=== PATIENT | female | born 1965 | race Caucasian/White ===

== ENCOUNTER 2021-07-23 05:27 | Observation (INO) ==
[2021-07-23 06:20] LABS: Basophils # 0.1 K/mcL (0.0-0.2); Basophils % 0.6 %; Eosinophils # 0.2 K/mcL (0.0-0.6); Eosinophils % 1.7 %; Hematocrit 44.6 % (35.3-44.9); Hemoglobin 14.5 g/dL (11.5-15.4); Immature Granulocytes % 0.6 % (0-4); Lymphocytes # 1.7 K/mcL (0.6-4.6); Lymphocytes % 16.1 %; Mean Corpuscular HGB Conc 32.5 g/dL (31.6-35.5); Mean Corpuscular Hemoglobin 29.3 pg (28.0-33.3); Mean Corpuscular Volume 90.1 fL (83.0-100.0); Mean Platelet Volume 10.9 fL (9.4-12.4); Monocytes # 0.7 K/mcL (0.0-1.3); Monocytes % 6.4 %; Platelet Count 270 K/mcL (140-400); Red Blood Count 4.95 M/mcL (3.82-4.97); Red Cell Distribution Width 13.9 % (11.5-14.5); Segmented Neutrophils % 74.6 %; White Blood Count 10.7 K/mcL (4.3-11.1)
[2021-07-23 06:28] LABS: INR 1.1; Prothrombin Time 12.1 Seconds (9.4-12.1)
[2021-07-23 06:30] LABS: Activated Partial Thrombo Time 34.1 Seconds (26.0-36.0)
[2021-07-23] MEDS ORDERED: Isovue-370 500 ML BOTTLE IVP ONE (06:38)
[2021-07-23 06:53] LABS: Alanine Aminotransferase 22 Units/L (7-52); Albumin 4.1 g/dL (3.5-5.7); Albumin/Globulin Ratio 1.5 (1.1-2.2); Alkaline Phosphatase 94 Units/L (34-104); Aspartate Amino Transferase 17 Units/L (13-39); BUN/Creatinine Ratio 24 (6-26); Bilirubin,Direct 0.1 mg/dL (0.0-0.2); Bilirubin,Indirect 0.5 mg/dL (0.0-1.0); Bilirubin,Total 0.6 mg/dL (0.3-1.0); Blood Urea Nitrogen 19 mg/dL (6-20); Calcium 9.1 mg/dL (8.6-10.3); Carbon Dioxide 26 mEq/L (23-29); Chloride 106 mEq/L (98-107); Globulin 2.7 g/dL (2.4-3.5); Glucose 133 mg/dL (70-105); Lipase 39 Units/L (11-82); Osmolality,Calculated 294 (280-300); Potassium 3.5 mEq/L (3.5-5.1); Sodium 140 mEq/L (136-145); Total Protein 6.8 g/dL (6.4-8.9); Troponin I 0.14 ng/mL (< 0.04); eGFR For African Americans > 60 (> 60); eGFR For Non-African Americans > 60 (> 60)
[2021-07-23] MEDS ORDERED: *HR* LORazepam 2 MG/ML VIAL IVP ONE (07:37)
[2021-07-23] MEDS ORDERED: *HR* Heparin 5,000 UNIT/ML VIAL IVP ONE (07:44)
[2021-07-23] MEDS ORDERED: *HR* Heparin 5,000 UNIT/ML VIAL IVP PRN ×2 (07:44)
[2021-07-23] MEDS ORDERED: Heparin 25,000UNIT/250ML 1/2NS 25,000 UNIT/250 ML IV.SOLN IVC SCH (07:45)
[2021-07-23] MEDS ORDERED: Melatonin 3 MG TABLET PO PRN (08:01)
[2021-07-23] MEDS ORDERED: Ondansetron ODT 4 MG TAB.RAPDIS SL PRN (08:01)
[2021-07-23] MEDS ORDERED: Naloxone 0.4 MG/ML INJ IVP PRN (08:01)
[2021-07-23] MEDS ORDERED: Perflutren Lipid Microsphere 1.3 ML in 0.9 % Sodium Chloride 8.7 ML IVP PRN (08:05)
[2021-07-23 11:53] LABS: Chol/HDL Ratio 6.4 (0-4.9)
[2021-07-23 12:08] LABS: Troponin I 1.93 ng/mL (< 0.04)
[2021-07-23] MEDS ORDERED: ISOVUE-370 200 ML INFUS..BTL ONE ×2 (14:13→15:09)
[2021-07-23] MEDS ORDERED: Heparin 1,000 UNITS/500 mL 500 ML ONE (14:13)
[2021-07-23] MEDS ORDERED: *HR* Heparin 10,000 UNIT/10 ML VIAL ONE (14:13)
[2021-07-23] MEDS ORDERED: *HR* FentaNYL (PF) 100 MCG/2 ML VIAL ONE (14:14)
[2021-07-23] MEDS ORDERED: *HR* Midazolam HCl 5 MG/5 ML VIAL IVP ONE (14:14)
[2021-07-23] MEDS ORDERED: 0.9 % Sodium Chloride 1,000 ML ONE ×2 (14:14→14:18)
[2021-07-23] MEDS ORDERED: Nitroglycerin 1,000 MCG/5 ML VIAL IV ONE (14:14)
[2021-07-23] MEDS ORDERED: *HR* Bivalirudin 250 MG VIAL IVC ONE (14:52)
[2021-07-23] MEDS ORDERED: *HR* Ticagrelor 90 MG TABLET ONE (15:01)
[2021-07-23] MEDS ORDERED: Nitroglycerin 0.4 MG TAB.SUBL SL PRN (15:55)
[2021-07-23] MEDS ORDERED: 0.9 % Sodium Chloride 1,000 ML IVC SCH (16:00)
[2021-07-23] MEDS: *HR* Ticagrelor 90 MG TABLET PO SCH (19:38)
[2021-07-23] MEDS ORDERED: ALPRAZolam 0.5 MG TABLET PO SCH (21:00)
[2021-07-23] MEDS ORDERED: *HR* HYDROcodone/Acet 5/325 mg TABLET PO ONE (22:59)
[2021-07-24 05:03] LABS: Basophils # 0.1 K/mcL (0.0-0.2); Basophils % 0.5 %; Eosinophils # 0.2 K/mcL (0.0-0.6); Eosinophils % 2.1 %; Hematocrit 39.8 % (35.3-44.9); Hemoglobin 13.5 g/dL (11.5-15.4); Immature Granulocytes % 0.5 % (0-4); Lymphocytes # 1.8 K/mcL (0.6-4.6); Lymphocytes % 19.5 %; Mean Corpuscular HGB Conc 33.9 g/dL (31.6-35.5); Mean Corpuscular Hemoglobin 30.6 pg (28.0-33.3); Mean Corpuscular Volume 90.2 fL (83.0-100.0); Mean Platelet Volume 10.9 fL (9.4-12.4); Monocytes # 0.7 K/mcL (0.0-1.3); Monocytes % 7.9 %; Neutrophils # 6.4 K/mcL (1.6-8.9); Platelet Count 252 K/mcL (140-400); Red Blood Count 4.41 M/mcL (3.82-4.97); Segmented Neutrophils % 69.5 %; White Blood Count 9.2 K/mcL (4.3-11.1)
[2021-07-24 05:19] LABS: INR 1.1; Prothrombin Time 12.2 Seconds (9.4-12.1)
[2021-07-24 05:23] LABS: BUN/Creatinine Ratio 20 (6-26); Blood Urea Nitrogen 17 mg/dL (6-20); Calcium 8.6 mg/dL (8.6-10.3); Carbon Dioxide 25 mEq/L (23-29); Chloride 107 mEq/L (98-107); Glucose 116 mg/dL (70-105); Osmolality,Calculated 291 (280-300); Potassium 3.7 mEq/L (3.5-5.1); Sodium 139 mEq/L (136-145); eGFR For African Americans > 60 (> 60); eGFR For Non-African Americans > 60 (> 60)
[2021-07-24] MEDS: *HR* Ticagrelor 90 MG TABLET PO SCH (08:30)
[2021-07-24] MEDS ORDERED: Aspirin 81 MG TAB.CHEW PO SCH (09:00)
[2021-07-24] MEDS ORDERED: lisinopriL 5 MG TABLET PO SCH (09:00)
[2021-07-24 11:02] VITALS: TEMP 98.1
[2021-07-24 15:20] VITALS: BP 162/95; PULSE 72; O2SAT 95
== END 2021-07-24 17:42 | disposition home or self-care (01) ==
LOC: SUATTDRO → EMEROOARM 05:27 → 3BNU 05:27 → SUATTDRO 08:07 → 3BNU 09:13
PROVIDERS: ADMIT Internal Medicine; ATTEND Student in an Organized Health Care Education/Training Program